=== PATIENT | male | born 1965 | race Caucasian/White ===

== ENCOUNTER 2018-05-14 22:45 | Emergency (ER) | payer BC ==
[~2018-05-14] VITALS: Ht 175.3 cm; Wt 77.1 kg
[2018-05-14] MEDS ORDERED: UNOBMED (23:05)
[2018-05-14 23:11] VITALS: BP 122/79
[2018-05-14] MEDS ORDERED: Ciprofloxacin 500mg tab ORAL ONE (23:15)
[2018-05-14] MEDS ORDERED: CIPROFLOXACIN500 M2 ORAL (23:15)
[2018-05-14] MEDS ORDERED: ZOFRAN4 M3 ORAL (23:15)
--- NOTE | 2018-05-14 23:18 | Emergency Room Report ---
History of Present Illness General Chief Complaint: Diarrhea Source: Patient Present Illness HPI Patient presents with reports of diarrhea ongoing for the past 2 days He saw some tinge of blood in it today was concerned Denies any abdominal pain at this time denies any cramping Patient reports recent visit to [place] He did end up swallowing some water in a stream Denies any fevers or chills denies any chest pain or shortness of breath denies any vomiting Allergies: Coded Allergies: CEPHALEXIN (Verified Allergy, Unknown, 05/14/18) PENICILLINS (Verified Allergy, Unknown, 05/14/18) Patient History Past Medical History: see triage record Pertinent Family History: none Reviewed Nursing Documentation: PMH: Agreed; PSxH: Agreed Nursing Documentation-PMH Past Medical History: No History, Except For Hx Cardiac Problems: No - HIV+ Review of Systems All Other Systems: negative except mentioned in HPI Physical Exam Vital Signs Date Time Temp Pulse Resp B/P (MAP) Pulse Ox O2 Delivery O2 Flow Rate FiO2 05/14/18 23:01 98.1 78 16 122/79 97 Room Air Sp02 EP Interpretation: reviewed, normal General Appearance: well appearing, no apparent distress Head: normocephalic, atraumatic Eyes: bilateral eye PERRL, bilateral eye EOMI ENT: hearing grossly normal, normal pharynx, TMs + canals normal, uvula midline Neck: full range of motion, supple, no meningismus, no bony tend Respiratory: lungs clear, normal breath sounds, no rhonchi, no respiratory distress, no retraction, no accessory muscle use Cardiovascular #1: normal peripheral pulses, regular rate, rhythm, no edema, no gallop, no JVD, no murmur Gastrointestinal: normal bowel sounds, non tender, soft, no mass, no organomegaly, non-distended, no guarding, no hernia, no pulsatile mass, no rebound Genitourinary: no CVA tenderness Musculoskeletal: normal inspection Neurologic: oriented x3, responsive, marketing regional consultant III-XII nml as tested, motor strength/ tone normal, sensory intact Psychiatric: mood/affect normal Skin: normal color, no rash, warm/dry, palpation normal Lymphatic: normal inspection, no adenopathy Medical Decision Making Diagnostic Impression: Primary Impression: Diarrhea ER Course Multiple differentials considered Patient appears well otherwise does not appear septic or toxic Afebrile abdominal exam is soft and benign Patient will have attempt on oral antibiotics given the water contact in [place] And return with any changes Last Vital Signs Date Time Temp Pulse Resp B/P (MAP) Pulse Ox O2 Delivery O2 Flow Rate FiO2 05/14/18 23:11 98.1 72 16 122/79 97 Room Air Status: improved Disposition: HOME, SELF-CARE Condition: Improved Scripts Ondansetron* (ZOFRAN*) 4 Mg Tablet 4 MG ORAL Q8HR PRN for Nausea & Vomiting, #10 TAB Prov: Wilber Joe DO 05/14/18 Ciprofloxacin Hcl* (CIPROFLOXACIN HCL*) 500 Mg Tablet 500 MG ORAL Q12H, #10 TAB 0 Refills Prov: Wilber Joe DO 05/14/18 Patient Instructions: Diarrhea, Adult Additional Instructions: Patient is provided with the discharge instructions notified to follow up with primary doctor in the next 2-3 days otherwise return to the er with any worsening symptoms. Please note that this report is being documented using DRAGON technology. This can lead to erroneous entry secondary to incorrect interpretation by the dictating instrument. Wilber Joe DO May 14, 2018 23:18
[2018-05-14 23:23] VITALS: BP 123/76
== END 2018-05-14 23:40 | disposition home or self-care (01) ==
LOC: EMR 23:00
DX: R19.7 Diarrhea, unspecified (principal); Z88.0 Allergy status to penicillin; Z88.1 Allergy status to other antibiotic agents
CPT/HCPCS: 99282